=== PATIENT | female | born 1965 | race Caucasian/White ===

== ENCOUNTER 2018-06-06 06:57 | Day surgery (SDC) | payer BC, SELFPAY ==
--- NOTE | 2018-06-06 06:39 | W.COLOREPORT ---
Colonoscopy Report Date of procedure: 06/06/18 Pre-op diagnosis general: Colon Cancer screening Post-op diagnosis procedure note: same Procedure: Colonoscopy Surgeon: Anne Johnson Anesthesia proc note operative: MAC (Maryan Scott CRNA) Estimated blood loss (mL): 0 Pathology: none sent Complications: None Disposition: same day Indications: Mrs. Olvera is a pleasant 52 year old female seen in the office for a screening colonoscopy. Risks, benefits, complications were reviewed with her and she wished to proceed. No guarantees were given or implied. Prep: Miralax/Dulcolax Procedure Start Time: 08:35 Procedure End Time: 08:57 Retraction Time: 14 minutes Findings: Mild melanosis coli otherwise normal appearing large bowel Procedure Description: After informed consent was obtained the patient was taken to the procedure room and placed in a left decubitous position. Monitors were applied and a time out was done. The patients name, date of , procedure, allergies to medications and metal in their body was reviewed. The patient was then sedated. Once sedated and comfortable a rectal exam was done. External exam was normal. Internal exam revealed a normal sphincter tone and no palpable masses. The scope was then introduced and retroflexed. No internal hemorrhoids were identified. The scope was then advanced to the cecum without difficulty. The TI and appendiceal orifice were identified. The prep was adequate. The scope was then slowly retracted over 14 minutes back into the rectum. The scope was removed and the patient was woken up and taken back to Same day surgery in stable condition. The patient tolerated the procedure well and there were no immediate complications. Follow up: The patient should follow up in 10 years unless they develop changes in bowel habits or other new gastrointestinal complaints.
--- NOTE | 2018-06-06 06:51 | PDOC.DSDIS_ITS ---
Discharge Plan Disposition Patient Disposition: HOME Condition: Good Discharge Details Reason For Visit: Colon Cancer screening Attending Provider: Anne Johnson Primary Care Provider: Josh Arias Home Meds and New Rx's Prescriptions: Continue calcium carbonate 500 MG tablet 500 mg PO DAILY RF: 0 cholecalciferol (vitamin D3) [Vitamin D3] 2,000 UNIT capsule 2,000 unit PO DAILY RF: 0 avwcccqfeph-klzthjxdo-wup C-Mn [Glucosamine-Chondroitin Complx] 1 EACH capsule 1 ea PO DAILY RF: 0 vitamin B complex 1 EACH capsule 1 ea PO DAILY RF: 0 acyclovir 200 MG capsule 200 mg PO Q4HR PRNRF: 0 Discontinued polyethylene glycol 3350 17 gram powder in packet 255 g PO DAILY Qty: 15 RF: 0 bisacodyl [Dulcolax (bisacodyl)] 5 mg tablet,delayed release (DR/EC) 5 mg PO ONCE Qty: 4 RF: 0 Discharge Instructions Instructions: Colonoscopy (DC) Additional Instructions: Findings: Follow up: New Medications: Please call if you develop: fevers >101.5 Nausea or Vomiting Abdominal pain that is not transient 1. Because there will be medication in your system for the next 24 hours, you may feel a little sleepy. Your coordination will be affected. Therefore: a. Do not drive or operate dangerous equipment for 24 hours. b. Do not drink alcohol beverages for 24 hours (not even beer). c. Plan to go home and rest for the day. 2. Generally there are no restrictions on your activity after a day or so has gone by, but you may feel a bit fatigued for a few days. 3 After you arrive home you may have a light meal and return to a normal diet as you can tolerate it without feeling sick to your stomach. 4. After surgery, you may feel pain or discomfort. This should be only transient , but if it persists please contact your doctor. 5. If there are any questions regarding the findings of your procedure, please feel free to contact your doctor. 6. If you are unable to contact your doctor with a problem, contact the hospital at [phone]. 7. Continue all your regular medications unless directed otherwise. I understand the above instructions and have no questions. Signature of Patient or Responsible Adult Escort Date/Time Name of Responsible Adult Escort Signature of Nurse Date/Time Activity:: Activity as Tolerated Diet:: As Tolerated Discharge Orders Discharge Orders: Discharge Order (Routine); Ordered 06/06/18 Ordered By: Anne Johnson DS: Diagnosis Discharge Diagnosis (1) Normal colonoscopy: Status: Acute
[2018-06-06 07:06] VITALS: BP 131/84; PULSE 61; RESP 16; TEMP 36.6; O2SAT 98
[2018-06-06] MEDS: Lactated Ringers 1,000 ML 80 ML IV (07:50)
[2018-06-06 09:38] VITALS: BP 123/83; PULSE 56; RESP 16; TEMP 36.5; O2SAT 99
== END 2018-06-06 10:35 | disposition home or self-care (01) ==
LOC: SUR 06:58
PROVIDERS: PCP Emergency Medicine; Visit Provider Surgery
PROC: 0DJD8ZZ Inspection of Lower Intestinal Tract, Via Natural or Artificial Opening Endoscopic (ICD-10-PCS; CPT 45378; principal; 2018-06-06 08:30)
DX: Z12.11 Encounter for screening for malignant neoplasm of colon (principal); K63.89 Other specified diseases of intestine
CPT/HCPCS: 45378

== ENCOUNTER 2020-04-11 11:26 | Outpatient (REF) | payer BC, SELFPAY ==
--- NOTE | 2020-04-11 10:45 | PAPFT_PTH ---
PATIENT: Monse Olvera LOC: [facility] U#:[id number] AGE/SX: 54/F ROOM: RE04/11/[address]: ELIER Valverde : 1965 BED: DIS: 04/11/2020 SPEC #: [id number] RECD: 04/11/20 12:55 STATUS: ANG REQ #: [id number] JESS: 04/11/20 10:[address]: Kathleen Tillman DEPT: [facility] Cytology RECD BY: Verito Rolon ENTERED: 04/11/20 12:56 SP TYPE: PAPFT OTHR DR: Josh Arias, Tissues: 1 - CX/ENDOCX FOR PAP SMEARS Procedures: PAP THIN PREP/UVM Screening HPV DNA PROBE Comments: [id number]
== END 2020-04-11 11:46 ==
LOC: LBN 11:26
PROVIDERS: PCP Emergency Medicine; Visit Provider Nurse Practitioner Family
DX: Z12.4 Encounter for screening for malignant neoplasm of cervix (principal); Z11.51 Encounter for screening for human papillomavirus (HPV)
CPT/HCPCS: 88142; 87624

== ENCOUNTER 2023-03-24 07:40 | Emergency (ER) | payer BC, SELFPAY ==
[2023-03-24 07:53] VITALS: BP 167/93; PULSE 79; RESP 20; TEMP 36.7; O2SAT 100
--- NOTE | 2023-03-24 08:00 | RT.EKG_ITS ---
APPROVED REPORT Exam: Resting ECG Reason for Exam: back pain Patient Location: E HR:64 bpm ECG Measurements Heart Rate 64 AXIS ND 172 P 3 QRSd 88 QRS 74 QT 402 T 15 QTc 416 Conclusion Sinus rhythm...normal P axis, V-rate 60- 99 Narrow complex normal sinus rhythm at a rate of 64. Normal axis. Intervals within normal limits. P oor R wave progression. Biphasic T wave in V2. Subtle ST segment depression in lead I. No prior fo r comparison. No acute injury pattern.
--- NOTE | 2023-03-24 08:18 | ED.GENADUL_ITS ---
Discharge Plan Disposition Patient Disposition: Home Condition: Stable Discharge Details Clinical Impression: Strain of thoracic paraspinal muscles excluding T1 and T2 levels, Back pain Primary Care Provider: Hawa Ruffin ED Provider: Seema Crystal Home Meds and New Rx's Prescriptions: New cyclobenzaprine 10 mg tablet 10 mg PO TID PRN (Reason: muscle spasm) Qty: 10 0RF Rx Instructions: Take 1 tablet orally up to 3 times daily as needed for muscle spasm. Continued multivitamin Tablet 1 tab PO DAILY Mirena 20 mcg/24 hours (7 yrs) 52 mg intrauterine device 1 device intrauterine ONCE Rx Instructions: as a single dose bbfjhpcp-hfph-fghfgp-hyalur ac [id number] mg capsule PO Patient Comments: no longer taking acyclovir 200 mg capsule 200 mg PO Q4HR PRN (Reason: herpes ) Qty: 30 4RF Rx Instructions: Take 1 tab every 4 hours, five times a day for 5 days for outbreaks Discharge Instructions Instructions: Back Pain (ED) Additional Instructions: Chest x-ray and rib x-rays are within normal limits, shows nothing acute. I do suspect that this is musculoskeletal strain. Alternate ice and heat for 20 minutes every couple hours. Please take Tylenol or Ibuprofen with food every 4-6 hours as needed for pain and swelling. You may also apply lidocaine patches which you can get [id number]-gblofya keep the lidocaine patch on for 12 to 24 hours. Follow up with primary care provider in 3-5 days. Return to ED sooner if any worsening pain, numbness, tingling, loss of bowel or bladder control or concerns. Increase oral fluids. Referrals: Hawa Ruffin, DIANE [Primary Care Provider] - 1 week Medical Decision Making 57-year-old female presents to the ER with a chief complaint of left thoracic paraspinous tenderness which has gotten worse throughout the night. Patient saw a chiropractor yesterday had an adjustment which increased the pain. She denies any loss of bowel or bladder control no radiation of pain denies any numbness tingling. Denies any urinary symptoms. She describes the pain that is sharp and shoots through her chest. She does complain of a little bit of nausea as well. Denies any dizziness lightheadedness shortness of breath cough or other associated symptoms. Past medical history includes herpes labialis, left-sided sciatica, degenerative joint disease, urinary incontinence, she does have a family history of coronary artery sclerosis and family history of breast cancer. EKG ordered, originally CT T and L-spine ordered however patient has had no trauma, no radiation of pain no radiculopathy type symptoms. I did change it to a chest and rib series. Patient reports that the chiropractor did an adjustment and said that she had a rib out of place. EKG was reviewed by Dr. Morin ER attending, no ischemic changes, no stemi, please see his official report no old EKG available for review. On patient reevaluation she reports some improvement of her symptoms. Nausea has improved. We will give a lidocaine patch and Flexeril to go home with. Patient reports that she does have a massage later today at 4 I did caution her to inform the masseuse that she is having some back pain. Discussed home care and follow-up care she verbalizes understanding. Discussed strict return instructions to return if it continues to get worse or if she feels sicker at any time. This text was generated using [employer] system, please disregard any oddities of phrase or misspellings. Medical Records Medical records reviewed: Yes I reviewed the patient's medical records. Imaging Data Radiologic Study: Imaging: X-Ray Radiologist's impression: XR RIBS LT W PA ? LAT CHEST CLINICAL HISTORY ?Left posterior rib pain.? COMPARISON:? No exams were available for comparison TECHNIQUE::? PA and lateral views of the chest and four views of the left ribs were performed. FINDINGS: LUNGS: Clear. No pleural abnormality seen. HEART: Normal. MEDIASTINUM: Normal. BONES: No displaced rib fracture is seen.? No compression fractures are seen in the thoracic spine.? No bony destructive lesion is seen. OTHER FINDINGS: None. IMPRESSION: 1. Unremarkable radiographic appearance of the left ribs. 2. No acute pulmonary findings. HPI General Mode of arrival: ambulatory . Date/Time Provider Initiated Documentation: 03/24/23 08:02 . Limitations to Documentation: no limitations . Information obtained by: patient, RN notes reviewed and old records reviewed . HPI Narrative: 57-year-old female presents to the ER with a chief complaint of left thoracic paraspinous tenderness which has gotten worse throughout the night. Patient saw a chiropractor yesterday had an adjustment which increased the pain. She denies any loss of bowel or bladder control no radiation of pain denies any numbness tingling. Denies any urinary symptoms. She describes the pain that is sharp and shoots through her chest. She does complain of a little bit of nausea as well. Denies any dizziness lightheadedness shortness of breath cough or other associated symptoms. Past medical history includes herpes labialis, left-sided sciatica, degenerative joint disease, urinary incontinence, she does have a family history of coronary artery sclerosis and family history of breast cancer. Related Data Home Medications Medication Instructions Recorded Confirmed multivitamin 1 tab PO DAILY 05/20/21 03/24/23 glucosamin 375 mg-chond 300 cap PO 05/29/22 05/29/22 mg-collagen 50 mg-hyaluronic acid 2 mg cap levonorgestrel 21 mcg/24 hours (8 1 device intrauterine ONCE 05/29/22 03/24/23 yrs) 52 mg intrauterine device (Mirena) acyclovir 200 mg capsule 200 mg PO Q4HR PRN herpes #30 caps 11/16/22 03/24/23 cyclobenzaprine 10 mg tablet 10 mg PO TID PRN muscle spasm #10 03/24/23 tabs Previous Rx's Medication Instructions Recorded acyclovir 200 mg capsule 200 mg PO Q4HR PRN herpes #30 caps 11/16/22 cyclobenzaprine 10 mg tablet 10 mg PO TID PRN muscle spasm #10 03/24/23 tabs Allergies Allergy/AdvReac Type Severity Reaction Status Date / Time No Known Drug Allergies Allergy Verified 03/24/23 07:56 General Stated Complaint: Nk/Back Pain PEE: 3 Review of Systems All systems reviewed & are unremarkable except as noted in HPI and below Musculoskeletal Musculoskeletal: Reports as per HPI, Reports back pain and Reports stiffness PFSH All Active Problems (Updated 03/24/23 @ 09:45 by Seema Crystal NP) Strain of thoracic paraspinal muscles excluding T1 and T2 levels (Acute) Back pain (Acute) LIZBETH (stress urinary incontinence, female) (Acute) Pelvic organ prolapse quantification stage 1 cystocele (Acute) IUD surveillance (Acute 04/20/17) Herpes labialis (Acute 02/19/15) Family history of coronary arteriosclerosis (Acute 05/15/16) both paternal grandparents Family history of breast cancer in mother (Acute 03/06/15) Medical History Left sided sciatica (03/06/15) Menorrhagia (11/17/16) Post-traumatic osteoarthritis of left ankle (05/21/15) Surgical History Colonoscopy planned (~06/06/18) Repair of umbilical hernia Family History Mother Neoplasm BREAST Father No problems noted. Sister No problems noted. Sister No problems noted. Brother No problems noted. Grandfather Alzheimer disease Grandfather Heart disease Grandmother Emphysema lung Grandmother Neoplasm STOMACH Son No problems noted. Daughter No problems noted. Daughter No problems noted. Social History Smoking/Tobacco Use Status: Never Smoking risk assessment performed?: Yes Alcohol Intake: current Alcohol Intake frequency: a few times a week Drug use: Never Substance use type: does not use Household members: family Number of Children: 3 History History 3 Para 3 Hx # Term Pregnancies Multiple births Hx # Pregnancies Ectopic pregnancies AB induced Hx Number of Living Children AB spontaneous Exam Narrative Exam Narrative: Constitutional: Alert and oriented x3. Appears stated age. Normal body habitus. Head: Normocephalic, no trauma. Eyes: Pupils PERRL, Red reflex noted, EOM's intact. Eyelids symmetrical without lesions, discharge, or swelling. Chest: RRR, Normal S1, S2, distal pulses intact. Resp: Lungs clear to auscultation bilaterally, no wheezes, rales, or rhonchi. Abdomen: Soft, non-distended, Normoactive bowel sounds all 4 quads. Musculoskeletal: Normal gait, 5/5 strength to all four extremities. Left thoracic paraspinous tenderness with palpation. Skin: No suspicious rashes or lesions. Capillary refill less than 2 sec. Neurologic: Cranial nerves II-XII intact. Alert and oriented x 3. Motor: No deficits noted. Sensory: Intact bilaterally all 4 extremities. Hematologic/Lymphatic: No ecchymosis, no lymphadenopathy. Course Vital Signs Vital signs: Vital Signs Temperature 36.7 C 03/24/23 07:53 Pulse 79 08/16/23 07:53 Respiratory Rate 20 03/24/23 07:53 Blood Pressure 167/93 H 03/24/23 07:53 Pulse Oximetry 100 03/24/23 07:53 Temperature 36.7 C 03/24/23 07:53 Temperature Source Skin 03/24/23 07:53 Pulse 79 03/24/23 07:53 Respiratory Rate 20 03/24/23 07:53 Respiratory Effort Normal 03/24/23 07:56 Blood Pressure 167/93 H 03/24/23 07:53 Blood Pressure Position Sitting 03/24/23 07:53 Pulse Oximetry 100 03/24/23 07:53 Oxygen Delivery Method Room Air 03/24/23 07:53 Oxygen Flow Rate 0 03/24/23 07:53 Pain Level 8 03/24/23 07:53
--- NOTE | 2023-03-24 08:30 | DI.RAD_ITS ---
Exam(s) XR RIBS LT W PA LAT CHEST CLINICAL HISTORY Left posterior rib pain. COMPARISON: No exams were available for comparison TECHNIQUE:: PA and lateral views of the chest and four views of the left ribs were performed. FINDINGS: LUNGS: Clear. No pleural abnormality seen. HEART: Normal. MEDIASTINUM: Normal. BONES: No displaced rib fracture is seen. No compression fractures are seen in the thoracic spine. No bony destructive lesion is seen. OTHER FINDINGS: None. IMPRESSION: 1. Unremarkable radiographic appearance of the left ribs. 2. No acute pulmonary findings.
[2023-03-24] MEDS: diazePAM 10 MG/2 ML SYR 5 MG IM (08:50)
[2023-03-24] MEDS: Ketorolac 30 MG/ML VIAL IM (08:51)
[2023-03-24] MEDS: Cyclobenzaprine 10 MG TAB, 3 TABS/BTL PO (09:39)
[2023-03-24] MEDS: Lidocaine 5% Patch 1 PATCH TP (09:39)
== END 2023-03-24 09:55 | disposition home or self-care (01) ==
PROVIDERS: Emergency Provider Registered Nurse Emergency; PCP Nurse Practitioner Family
DX: S29.012A Strain of muscle and tendon of back wall of thorax, initial encounter; Z82.49 Family history of ischemic heart disease and other diseases of the circulatory system; Z80.3 Family history of malignant neoplasm of breast
CPT/HCPCS: 93005; 96372; 99284; 71046; 71100; 93010; J1885; J3360

== ENCOUNTER 2023-04-10 16:10 | Outpatient (REF) | payer BC, SELFPAY ==
[2023-04-10 16:24] LABS: Abs Immature Grans 0.04 10^3/uL (0.0-0.06); Absolute Basophil Count 0.06 10^3/uL (0.0-0.2); Absolute Monocyte Count 0.78 10^3/uL (0.1-0.8); Absolute Neutrophil Count 6.69 10^3/uL (1.2-6.7); Basophils % 0.7; Eosinophils % 1.1; HCT 41.7 % (36.0-46.0); HGB 13.9 g/dL (11.2-15.7); Immature Grans % 0.5; Lymphocytes % 13.5; MCH 29.8 pg (27.0-33.0); MCHC 33.3 % (32.0-36.0); MCV 89 fL (80-95); MPV 10.7 fL (8.0-11.0); Monocytes % 8.8; Neutrophils % 75.4; Platelet Count 294 10^3/uL (130-400); RBC 4.67 10^6/uL (3.93-5.22); RDW 13.4 % (11.7-14.6); RDW-SD 43.8 fL; WBC 8.87 10^3/uL (4.4-10.8)
[2023-04-10 16:38] LABS: ALT 67 U/L (14-59); AST 48 U/L (15-37); Albumin 3.8 g/dL (3.4-5.0); Alkaline Phosphatase 66 U/L (46-116); Amylase 24 U/L (25-115); Anion Gap 7.8 mmol/L (3-11); BUN 6 mg/dL (7-18); Bilirubin, Total 0.3 mg/dL (0.2-1.0); CO2 27.2 mmol/L (21.0-32.0); CREATININE 0.8 mg/dL (0.55-1.02); Calcium 8.6 mg/dL (8.5-10.1); Chloride 104 mmol/L (98-107); Estimated GFR 86.96 (mL/min/1.73m2); Glucose 88 mg/dL (74-106); Lipase 25 U/L (16-77); Potassium 4.1 mmol/L (3.5-5.1); Sodium 139 mmol/L (136-145); Total Protein 6.4 g/dL (6.4-8.2)
== END 2023-04-10 16:11 | disposition home or self-care (01) ==
LOC: LBN 16:10
PROVIDERS: Visit Provider Nurse Practitioner Family
DX: R10.10 Upper abdominal pain, unspecified (principal); R11.0 Nausea; R19.7 Diarrhea, unspecified
CPT/HCPCS: 80053; 83690; 82150; 85025

== ENCOUNTER 2023-05-10 04:10 | Outpatient (CLI) | payer BC, SELFPAY ==
[2023-05-10 13:13] LABS: Calculated LDL 86 mg/dL (<100); Cholesterol 175 mg/dL (<200); HDL Cholesterol 72 mg/dL (40-60); Triglyceride 88 mg/dL (<150)
== END 2023-05-10 04:11 | disposition home or self-care (01) ==
LOC: LOS 04:11
PROVIDERS: PCP Nurse Practitioner Family; Visit Provider Nurse Practitioner Family
DX: Z00.00 Encounter for general adult medical examination without abnormal findings (principal); Z13.220 Encounter for screening for lipoid disorders
CPT/HCPCS: 36415; 80061

== ENCOUNTER 2025-06-25 12:00 | Outpatient (REF) | payer BC, SELFPAY ==
--- NOTE | 2025-06-25 11:30 | PAPFT_PTH ---
PATIENT: Monse Olvera LOC: [facility] U#:[id number] AGE/SX: 59/F ROOM: RE06/25/[address]: Rebecca Mcpherson DO : 1965 BED: DIS: 06/25/2025 SPEC #: [id number] RECD: 06/25/25 12:46 STATUS: ANG REQ #: [id number] JESS: 06/25/25 11:[address]: Rebecca Mcpherson [facility] Cytology RECD BY: Lora Amos ENTERED: 06/25/25 12:46 SP TYPE: PAPFT OTHR DR: Rosita Sullivan, DIANE Tissues: 1 - CX/ENDOCX FOR PAP SMEARS Procedures: PAP THIN PREP/U[facility] Screening HPV DNA PROBE Comments: [id number] (HPV 16 & 18/45)
== END 2025-06-25 12:01 | disposition home or self-care (01) ==
LOC: LBN 12:00
PROVIDERS: PCP Nurse Practitioner Family; Visit Provider Obstetrics & Gynecology
DX: Z12.4 Encounter for screening for malignant neoplasm of cervix (principal)
CPT/HCPCS: 88142; 87624

== ENCOUNTER 2025-07-13 02:03 | Outpatient (CLI) | payer BC, SELFPAY ==
[2025-07-13 10:42] LABS: Hemoglobin A1C 5.2 % (<5.7)
[2025-07-13 11:08] LABS: ALT 30 U/L (10-49); AST 37 U/L (<34); Albumin 4.8 g/dL (3.2-5.0); Alkaline Phosphatase 59 U/L (46-116); Anion Gap 7.6 mmol/L (3-11); BUN 9 mg/dL (9-23); Bilirubin, Total 0.80 mg/dL (0.2-1.2); CO2 29.4 mmol/L (20.0-31.0); Calcium 9.5 mg/dL (8.3-10.6); Chloride 107 mmol/L (98-107); Cholesterol 240 mg/dL (<200); Glucose 85 mg/dL (74-106); HDL Cholesterol 105 mg/dL (>40); Potassium 4.0 mmol/L (3.5-5.1); Sodium 144 mmol/L (136-145); Total Protein 7.2 g/dL (5.7-8.2)
[2025-07-13 18:59] LABS: Hepatitis C Ab w Rflx HCV PCR Negative (Negative)
[2025-07-13 19:03] LABS: HIV-1/2 Ag & Ab Screen Negative (Negative)
== END 2025-07-13 02:04 | disposition home or self-care (01) ==
LOC: LBO 02:04
PROVIDERS: PCP Nurse Practitioner Family; Visit Provider Nurse Practitioner Family
DX: Z00.00 Encounter for general adult medical examination without abnormal findings (principal); B00.1 Herpesviral vesicular dermatitis; Z30.431 Encounter for routine checking of intrauterine contraceptive device; N39.3 Stress incontinence (female) (male)
CPT/HCPCS: 36415; 80053; 80061; 86803; 87389; 83036